=== PATIENT | female | born 1995 | race Caucasian/White ===

== ENCOUNTER 2019-03-27 18:29 | Outpatient (CLI) | payer OTHER ==
[~2019-03-27] VITALS: Ht 154.9 cm; Wt 135.2 kg
[2019-03-27 18:37] VITALS: Ht 154.9 cm; Wt 135.2 kg
[2019-03-27 18:38] VITALS: BP 119/66; PULSE 80; RESP 20
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
[2019-03-27] MEDS ORDERED: PREN-99 PO (19:25)
[2019-03-27] MEDS ORDERED: ACETAMINOPHEN 325 MG TAB PO ONE (19:30)
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
== END 2019-03-27 21:25 | disposition home or self-care (01) ==
LOC: OBT 18:29 → L-D 18:33 → OBT 21:25
PROVIDERS: ATTEND Obstetrics & Gynecology
DX: O9A.212 Injury, poisoning and certain other consequences of external causes complicating pregnancy, second trimester (principal); S09.90XA Unspecified injury of head, initial encounter; Y04.2XXA Assault by strike against or bumped into by another person, initial encounter; Y92.89 Other specified places as the place of occurrence of the external cause
CPT/HCPCS: 76805; 80307; 81001; 87086; Z7500; Z7610; G0463

== ENCOUNTER 2019-03-27 21:33 | Emergency (ER) | payer SELFPAY ==
[~2019-03-27] VITALS: Ht 154.9 cm; Wt 128.4 kg
[~2019-03-27 21:33] MED LIST: PREN-99 PO
[2019-03-27 21:37] VITALS: BP 136/77; PULSE 95; RESP 19; Ht 154.9 cm; Wt 128.4 kg
== END 2019-03-27 22:00 | disposition left against medical advice (07) ==
LOC: FTE 21:33
DX: Z53.21 Procedure and treatment not carried out due to patient leaving prior to being seen by health care provider (principal)

== ENCOUNTER 2019-07-26 23:11 | Inpatient (IN) | payer OTHER ==
[~2019-07-26] VITALS: Ht 157.5 cm; Wt 138.4 kg
[~2019-07-26 23:11] MED LIST changes: +DOCU-144 PO; +IBUP-1542 PO
[2019-07-26 23:29] VITALS: Ht 157.5 cm; Wt 138.4 kg
[2019-07-26 23:30] VITALS: BP 127/69; PULSE 97; RESP 17
[2019-07-27] MEDS ORDERED: MISOPROSTOL 200 MCG TAB PR PRN (02:00)
[2019-07-27] MEDS ORDERED: BUTORPHANOL 2 MG INJ IV PRN (02:00)
[2019-07-27] MEDS ORDERED: IBUPROFEN 600 MG TAB PO PRN (02:00)
[2019-07-27] MEDS ORDERED: CARBOPROST 250 MCG INJ IM PRN (02:00)
[2019-07-27] MEDS ORDERED: AMPICILLIN 2 GM/NS (PMX) 100 ML IV ONE (02:00)
[2019-07-27] MEDS ORDERED: LIDOCAINE 1% (MPF) 30 ML INJ INJ PRN (02:00)
[2019-07-27] MEDS ORDERED: OXYTOCIN 30 UNITS/LR 500 ML IV PRN (02:00)
[2019-07-27] MEDS ORDERED: OXYTOCIN 30 UNITS/LR 500 ML IV SCH ×3 (02:00→11:00)
[2019-07-27] MEDS ORDERED: METHYLERGONOVINE 0.2 MG INJ IM PRN (02:00)
[2019-07-27] MEDS: LACTATED RINGER'S 1,000 ML IV SCH ×3 (02:17→20:54)
[2019-07-27] MEDS: AMPICILLIN 1 GM/NS (PMX) 50 ML IV SCH ×4 (08:21→20:53)
[2019-07-27] MEDS ORDERED: LACTATED RINGER'S 1,000 ML IV PRN (14:30)
[2019-07-27] MEDS ORDERED: HYDROmorphONE 0.5 MG/0.5 ML SYG IV PRN ×2 (15:00)
[2019-07-27] MEDS ORDERED: FENTAnyl 2MCG/ML-ROPIV 0.2% 100 ML BAG EPI SCH (15:00)
[2019-07-27] MEDS ORDERED: KETOROLAC 30 MG INJ IV PRN (15:00)
[2019-07-27] MEDS ORDERED: NALOXONE (0.4 MG/ML) INJ IV PRN (15:00)
[2019-07-27] MEDS ORDERED: DIPHENHYDRAMINE 50 MG INJ IV PRN (15:00)
[2019-07-27] MEDS ORDERED: ONDANSETRON 4 MG INJ IV PRN (15:00)
[2019-07-28] MEDS: AMPICILLIN 1 GM/NS (PMX) 50 ML IV SCH (00:45)
[2019-07-28 06:00] VITALS: BP 121/67; PULSE 91; RESP 19
[2019-07-28] MEDS ORDERED: OXYTOCIN 30 UNITS/LR 500 ML IV SCH (06:22)
[2019-07-28] MEDS ORDERED: ONDANSETRON 4 MG INJ IV PRN (06:30)
[2019-07-28] MEDS: IBUPROFEN 600 MG TAB PO SCH ×4 (06:30→23:40)
[2019-07-28] MEDS ORDERED: LANOLIN HPA 1 PKT TOP PRN (06:30)
[2019-07-28] MEDS ORDERED: WITCH HAZEL/GLYCERIN PAD PR PRN (06:30)
[2019-07-28] MEDS ORDERED: ZOLPIDEM 5 MG TAB PO PRN (06:30)
[2019-07-28] MEDS ORDERED: MISOPROSTOL 200 MCG TAB PR PRN (06:30)
[2019-07-28] MEDS ORDERED: CARBOPROST 250 MCG INJ IM PRN (06:30)
[2019-07-28] MEDS ORDERED: DIPHENHYDRAMINE 25 MG CAP PO PRN (06:30)
[2019-07-28] MEDS ORDERED: NACL 0.9% 3 ML SYG IV SCH (06:30)
[2019-07-28] MEDS ORDERED: OXYTOCIN 30 UNITS/LR 500 ML IV PRN (06:30)
[2019-07-28] MEDS: HYDROCODONE/APAP (5/325) TAB PO PRN ×3 (06:40→18:59)
[2019-07-28 07:45] VITALS: BP 118/59; PULSE 95; RESP 18
[2019-07-28] MEDS: LACTATED RINGER'S 1,000 ML IV SCH ×3 (07:58→16:46)
[2019-07-28] MEDS: SENNA/DOCUSATE NA (8.6MG/50MG) TAB PO SCH ×2 (09:05→21:55)
[2019-07-28 12:30] VITALS: BP 109/66; PULSE 71; RESP 16
[2019-07-28 15:45] VITALS: BP 94/60; PULSE 83; RESP 16
[2019-07-28 19:45] VITALS: BP 111/59; PULSE 100; RESP 18
[2019-07-29 04:08] VITALS: BP 109/53; PULSE 76; RESP 18
[2019-07-29] MEDS: IBUPROFEN 600 MG TAB PO SCH ×3 (05:41→18:20)
[2019-07-29 08:00] VITALS: BP 114/76; PULSE 71; RESP 18
[2019-07-29] MEDS: SENNA/DOCUSATE NA (8.6MG/50MG) TAB PO SCH ×2 (08:58→21:54)
[2019-07-29] MEDS: HYDROCODONE/APAP (5/325) TAB PO PRN ×2 (08:58→16:25)
[2019-07-29 16:10] VITALS: BP 92/54; PULSE 77; RESP 18
[2019-07-29 20:00] VITALS: BP 99/50; PULSE 76; RESP 20
[2019-07-30] MEDS: IBUPROFEN 600 MG TAB PO SCH ×3 (00:11→12:18)
[2019-07-30 04:05] VITALS: BP 105/63; PULSE 70; RESP 20
[2019-07-30 08:00] VITALS: BP 91/55; PULSE 79
[2019-07-30] MEDS ORDERED: MEASLES,MUMPS,RUBELLA VACCINE INJ SC* ONE (09:00)
[2019-07-30] MEDS ORDERED: DIPHTH/TET/ACEL PERTUSS (ADULT) 0.5 ML VIAL IM* ONE (09:00)
[2019-07-30] MEDS ORDERED: VARICELLA VACCINE LIVE/PF 1,350 UNIT/0.5 ML ML SC* ONE (09:00)
[2019-07-30] MEDS: HYDROCODONE/APAP (5/325) TAB PO PRN (09:49)
[2019-07-30] MEDS: SENNA/DOCUSATE NA (8.6MG/50MG) TAB PO SCH (09:49)
== END 2019-07-30 16:00 | disposition home or self-care (01) | DRG 807 ==
LOC: OBT 23:11 → L-D 23:13 → OBT 07-27 01:30 → L-D 07-27 01:30 → PP1 07-28 05:53
PROVIDERS: ADMIT Obstetrics & Gynecology; ATTEND Obstetrics & Gynecology
PROC: 10E0XZZ Delivery of Products of Conception, External Approach (ICD-10-PCS; principal; 2019-07-28)
PROC: 3E033VJ Introduction of Other Hormone into Peripheral Vein, Percutaneous Approach (ICD-10-PCS; 2019-07-28)
DX: O69.81X0 Labor and delivery complicated by cord around neck, without compression, not applicable or unspecified (principal); Z37.0 Single live birth; Z3A.37 37 weeks gestation of pregnancy
CPT/HCPCS: 62322; 76815; 76818; 80053; 80307; 81001; 81003; 85014; 85018; 85025; 85610; 85730; 86592; 86850; 86900; 86901; 87340; 90715; 90716; 93970; G0463; J0290; J0595; J2590; J3010; J7120